=== PATIENT | female | born 1950 | race Caucasian/White ===

== ENCOUNTER 2023-11-05 14:19 | Observation (INO) ==
[2023-11-05 14:56] LABS: BILIRUBIN,URINE NEGATIVE (NEGATIVE); BLOOD/HEMOGLOBIN,URINE NEGATIVE (NEGATIVE); GLUCOSE, URINE NEGATIVE (NEGATIVE); KETONES,URINE NEGATIVE (NEGATIVE); LEUKOCYTE ESTERASE ,URINE NEGATIVE (NEGATIVE); NITRITES,URINE NEGATIVE (NEGATIVE); PROTEIN,URINE NEGATIVE (NEGATIVE); UROBILINOGEN,URINE NORMAL (NORMAL)
[2023-11-05 14:58] LABS: APPEARANCE,URINE CLEAR (CLEAR); COLOR,URINE STRAW (YELLOW)
--- NOTE | 2023-11-05 15:08 | DR.GENAD ---
HPI Time Seen Time Seen by Provider: 11/05/23 15:06 PCP Primary Care Physician: Dr. Tse Complaint/Symptoms Chief Complaint Doctors Comments: The patient was seen in primary care provider's office yesterday was found to have sinusitis type symptoms she was put on antibiotics and given sinus medication. She had labs drawn also there in the office and was found to have a sodium of 122 and her primary care provider called her and told her she needs to go to the emergency room for further evaluation. Chief Complaint:: Pt states that 10/28/23 she had one day of nausea with vomiting. That night she started having fever up to 100.6. The fever lasted through Wednesday and pt also had intermittent headache through Wednesday. Pt called PCP on Wednesday and was seen in the office yesterday and was treated for sinus infection. Pt also had labs drawn and got a call today that her sodium was 122. Self Treatment fo Chief Complaint: Pt was treated with Rocephin and Steroid shot at PCP office. Pt was prescribed Amoxicillin 500mg po bid x 7 days and dexamethason 2mg po daily. COVID-19 Coronavirus risk:travel/contact w/high risk person: No Has patient experienced Coronavirus symptoms: No Source History Provided: Patient Mode of Arrival Mode of Arrival: Ambulatory Timing Onset of Chief Complaint: 11/05/23 PMH PMH Past Medical History: Yes Past Medical History: Coronary Artery Disease, Dyslipidemia, Hypertension, Hypothyroidism and [place] Past Medical History Comment: Raynauds Past Surgical History: Yes Surgical History: Angioplasty/Stents and Tonsillectomy Past Surgical History Comment: tubal ligation, abdominal cysts removed Family History History of Family Medical Conditions: Yes Family Medical History: Cancer and Hypertension Family Medical History Comment: afib Social History Does patient currently use any type of tobacco product: No Have you used tobacco products in the last 12 months: No Type of Tobacco Use: None Does any household member use tobacco: No Alcohol Use: None Do you use any recreational Drugs:: No Lives With: Spouse Lives Where: Home Travel Risk Coronavirus risk:travel/contact w/high risk person: No Has patient experienced Coronavirus symptoms: No Infectious screening In the last 2 months have you had wt loss of >10#?: NO Have you had fever, night sweats or hemotysis?: No Have you traveled outside the country in the last 6 months?: No Isolation: Standard ROS Review of Systems Constitutional: Other (hyponatremia) Eyes: No Symptoms Reported ENTM: No Symptoms Reported Respiratoy: No Symptoms Reported Cardiovascular: No Symptoms Reported Gastrointestinal/Abdominal: No Symptoms Reported Genitourinary: No Symptoms Reported Neurological: No Symptoms Reported Musculoskeletal: No Symptoms Reported Integumentary: No Symptoms Reported Hematologic/Lymphatic: No Symptoms Reported Endocrine: No Symptoms Reported Psychiatric: No Symptoms Reported PE Vital Signs Vitals: Vital Signs Temperature 97.8 F Pulse Rate 76 Pulse Rate 74 Pulse Rate 77 Pulse Rate 78 Pulse Rate 79 Pulse Rate 85 Pulse Rate 112 Pulse Rate 97 Pulse Rate 77 Pulse Rate 79 Pulse Rate 79 Pulse Rate 79 Pulse Rate 80 Pulse Rate 81 Pulse Rate 80 Pulse Rate 79 Pulse Rate 75 Pulse Rate 67 Pulse Rate 69 Pulse Rate 69 Pulse Rate 76 Pulse Rate 74 Pulse Rate 72 Respiratory Rate 25 Respiratory Rate 29 Respiratory Rate 27 Respiratory Rate 26 Respiratory Rate 32 Respiratory Rate 31 Respiratory Rate 28 Respiratory Rate 16 Respiratory Rate 28 Respiratory Rate 28 Respiratory Rate 22 Respiratory Rate 21 Respiratory Rate 25 Respiratory Rate 20 Respiratory Rate 25 Respiratory Rate 27 Respiratory Rate 23 Respiratory Rate 25 Respiratory Rate 23 Respiratory Rate 28 Respiratory Rate 33 Respiratory Rate 29 Respiratory Rate 20 Blood Pressure 142/79 Blood Pressure 157/79 Blood Pressure 151/82 Blood Pressure 135/76 Blood Pressure 112/65 Blood Pressure 126/66 Blood Pressure 126/72 Blood Pressure 126/72 Blood Pressure 130/67 Blood Pressure 130/67 Blood Pressure 125/75 Blood Pressure 124/67 Blood Pressure 134/78 Blood Pressure 140/73 Blood Pressure 191/104 Blood Pressure 199/100 Blood Pressure 169/90 O2 Sat by Pulse Oximetry 100 O2 Sat by Pulse Oximetry 100 O2 Sat by Pulse Oximetry 99 General Limitations: No Limitations General Appearance: In Distress (mild distress) Head Head Exam: Normal Inspection and Atraumatic Eyes Eye exam: Normal Appearance, PERRL and EOMI ENT ENT Exam: Normal Exam, Normal Oropharynx and Normal External Ear Exam External Ear Exam: Normal External Inspection TM/Canal Exam: Bilateral: Normal Nose Exam: Normal Nose Exam Mouth Exam: Normal Inspection Throat Exam: Normal Inspection Neck Neck Exam: Normal Inspection and Full ROM Chest Chest Inspection: Normal Inspection and Symmetric Chest Wall Rise Respiratory Respiratory Exam: Normal Lung Sounds Bilat Respiratory Exam: Bilateral: Clear to Auscultation Cardiovascular Cardiovascular Exam: Regular Rate and Normal Rhythm Abdominal Exam Abdominal Exam: Normal Inspection, Normal Bowel Sounds and Soft Extremities Extremities Exam: Normal Inspection and Full ROM Back Back Exam: Normal Inspection and Full ROM Neurologic Neurological Exam: Alert, Oriented X3 and CN II-XII Intact Psychiatric Psychiatric Exam: Normal Affect and Normal Mood MDM Differential Diagnosis Differential Diagnosis: hyponatremia COURSE Treatment Treatment: Patient did have a repeat sodium done and was 123. Patient was given a 1 L bolus of normal saline. And was also given 40 mg of Lasix IV. Time was made with Dr. Chandler at 1805 with information about this patient and he excepted the patient observation for treatment of hyponegative treatment and we are going to give her Lasix 40 mg IV every 12 hours and we will going to water restrict to 1 L every 24 hours. This patient blood pressure was elevated during this ER evaluation and she required getting hydralazine 10 mg IV which brought her blood pressure down this patient was told of the intent to put her in for observation for treatment of high pole natremia and she was agreeable to the observation. ROR Labs Reviewed Laboratory Results Reviewed?: Yes 11/05/23 15:40 11/05/23 15:40 Laboratory: WBC 5.1 X10^3/uL (3.6-10.0) 11/05/23 15:40 RBC 4.24 X10^6/uL (3.5-5.4) 11/05/23 15:40 Hgb 14.7 g/dL (12.0-16.0) 11/05/23 15:40 Hct 41.7 % (36.0-47.0) 11/05/23 15:40 MCV 98.3 fL (80.0-100.0) 11/05/23 15:40 MCH 34.7 pg (27.0-34.0) H 11/05/23 15:40 MCHC 35.3 g/dL (33.0-35.0) H 11/05/23 15:40 RDW 13.5 % (11.6-16.5) 11/05/23 15:40 Plt Count 308 X10^3/uL (150.0-450.0) 11/05/23 15:40 MPV 7.6 fL (7.4-11.0) 11/05/23 15:40 Neut % (Auto) 84.3 % (42.0-75.0) H 11/05/23 15:40 Lymph % (Auto) 8.4 % (21.0-51.0) L 11/05/23 15:40 [place] % (Auto) 6.9 % (0.0-13.0) 11/05/23 15:40 Eos % (Auto) 0.2 % (0.9-2.9) L 11/05/23 15:40 Baso % (Auto) 0.2 % (0.2-1.0) 11/05/23 15:40 Neut # (Auto) 4.3 x10^3/uL (2.2-4.8) 11/05/23 15:40 Lymph # (Auto) 0.4 X10^3/uL (1.3-2.9) L 11/05/23 15:40 [place] # (Auto) 0.4 x10^3/uL (0.3-0.8) 11/05/23 15:40 Eos # (Auto) 0.0 x10^3/uL (0.0-0.2) 11/05/23 15:40 Baso # (Auto) 0.0 X10^3/uL (0.0-0.1) 11/05/23 15:40 Absolute Nucleated RBC 0.0 /100WBC 11/05/23 15:40 Sodium 123 mmol/L (136-145) L* 11/05/23 15:40 Corrected Sodium TNP 11/05/23 15:40 Potassium 4.9 mmol/L (3.5-5.1) 11/05/23 15:40 Chloride 87 mmol/L (98-107) L 11/05/23 15:40 Carbon Dioxide 27.5 mmol/L (21-32) 11/05/23 15:40 BUN 6 mg/dL (7-18) L 11/05/23 15:40 Creatinine 0.54 mg/dL (0.55-1.02) L 11/05/23 15:40 Est GFR (MDRD) Af Amer > 60 (>60) 11/05/23 15:40 Est GFR (MDRD) Non-Af > 60 (>60) 11/05/23 15:40 Glucose 94 mg/dL (65-99) 11/05/23 15:40 Calcium 9.0 mg/dL (8.5-10.1) 11/05/23 15:40 Corrected Calcium TNP 11/05/23 15:40 Total Bilirubin 0.60 mg/dL (0.2-1.0) 11/05/23 15:40 AST 35 Units/L (15-37) 11/05/23 15:40 ALT 34 Units/L (12-78) 11/05/23 15:40 Alkaline Phosphatase 83 Units/L (46-116) 11/05/23 15:40 Total Protein 7.9 g/dL (6.4-8.2) 11/05/23 15:40 Albumin 4.3 g/dL (3.4-5.0) 11/05/23 15:40 Globulin 3.6 g/dL (2.5-4.5) 11/05/23 15:40 Albumin/Globulin Ratio 1.2 Ratio (1.1-2.1) 11/05/23 15:40 Specimen Type Clean catch urine 11/05/23 14:42 Urine Color Straw (YELLOW) 11/05/23 14:42 Urine Appearance Clear (CLEAR) 11/05/23 14:42 Urine pH 8.0 (5.0 - 8.0) 11/05/23 14:42 Ur Specific [place] 1.015 (1.000-1.030) 11/05/23 14:42 Urine Protein Negative (NEGATIVE) 11/05/23 14:42 Urine Glucose (UA) Negative (NEGATIVE) 11/05/23 14:42 Urine Ketones Negative (NEGATIVE) 11/05/23 14:42 Urine Blood Negative (NEGATIVE) 11/05/23 14:42 Urine Nitrite Negative (NEGATIVE) 11/05/23 14:42 Urine Bilirubin Negative (NEGATIVE) 11/05/23 14:42 Urine Urobilinogen Normal (NORMAL) 11/05/23 14:42 Ur Leukocyte Esterase Negative (NEGATIVE) 11/05/23 14:42 SARS-CoV-2 (PCR) Negative (NEGATIVE) 11/05/23 15:38 Influenza Type A (PCR) Negative (NEGATIVE) 11/05/23 15:38 Influenza Type B (PCR) Negative (NEGATIVE) 11/05/23 15:38 RSV (PCR) Negative (NEGATIVE) 11/05/23 15:38 Opioid Opioid Risk Tool Age (Margarito box if 16-45): No History of Preadolescent Sexual Abuse: No Total: 0 Total Score Risk Category: Low Risk Copyright: Pablo LR predicting aberrant behaviors Discharge Plan Diagnosis Discharge Problem: Acute hyponatremia Discharge Plan Patient Disposition: 09 ADMITTED INPATIENT Condition: Stable Orders to Discharge Patient Discharge Orders: Transfer (Routine); Ordered 11/05/23 Ordered By: Christopher Carrillo
[2023-11-05 15:15] VITALS: O2SAT 100
[2023-11-05] MEDS ORDERED: APRESOLINE INJ 20 MG VIAL ONE (15:46)
[2023-11-05 15:50] LABS: BASOPHILS % (AUTO) 0.2 % (0.2-1.0); EOSINOPHILS % (AUTO) 0.2 % (0.9-2.9); HEMATOCRIT 41.7 % (36.0-47.0); HEMOGLOBIN 14.7 g/dL (12.0-16.0); LYMPHOCYTES # (AUTO) 0.4 X10^3/uL (1.3-2.9); LYMPHOCYTES % (AUTO) 8.4 % (21.0-51.0); MEAN CORPUSCULAR HEMOGLOBIN 34.7 pg (27.0-34.0); MEAN CORPUSCULAR HGB CONC 35.3 g/dL (33.0-35.0); MEAN CORPUSCULAR VOLUME 98.3 fL (80.0-100.0); MEAN PLATELET VOLUME 7.6 fL (7.4-11.0); MONOCYTES # (AUTO) 0.4 x10^3/uL (0.3-0.8); MONOCYTES % (AUTO) 6.9 % (0.0-13.0); NEUTROPHILS # (AUTO) 4.3 x10^3/uL (2.2-4.8); NEUTROPHILS % (AUTO) 84.3 % (42.0-75.0); PLATELET COUNT 308 X10^3/uL (150.0-450.0); RED BLOOD COUNT 4.24 X10^6/uL (3.5-5.4); RED CELL DISTRIBUTION WIDTH 13.5 % (11.6-16.5); WHITE BLOOD COUNT 5.1 X10^3/uL (3.6-10.0)
[2023-11-05] MEDS: APRESOLINE INJ 20 MG VIAL IVP ONE (15:50)
[2023-11-05 16:54] LABS: ALANINE AMINOTRANSFERASE 34 Units/L (12-78); ALBUMIN 4.3 g/dL (3.4-5.0); ALKALINE PHOSPHATASE 83 Units/L (46-116); ASPARTATE AMINO TRANSFERASE 35 Units/L (15-37); BLOOD UREA NITROGEN 6 mg/dL (7-18); CARBON DIOXIDE 27.5 mmol/L (21-32); CHLORIDE 87 mmol/L (98-107); CREATININE 0.54 mg/dL (0.55-1.02); GLUCOSE 94 mg/dL (65-99); POTASSIUM 4.9 mmol/L (3.5-5.1); TOTAL PROTEIN 7.9 g/dL (6.4-8.2); eGFR NON BLACK RACES > 60 (>60)
[2023-11-05 16:56] LABS: SODIUM 123 mmol/L (136-145)
[2023-11-05] MEDS ORDERED: NS 1,000 ML IV 1,000 ML ONE (17:01)
[2023-11-05] MEDS: NS 1,000 ML IV 1,000 ML IV ONE (17:16)
[2023-11-05] MEDS: LASIX IVP ONE (18:14)
[2023-11-05 19:10] VITALS: RESP 20
[2023-11-05 22:26] VITALS: BMI 16.5
[2023-11-05] MEDS: LIPITOR TAB 20 MG PO SCH (22:36)
[2023-11-05] MEDS: RESTORIL CAP 15 MG PO PRN (22:42)
[2023-11-06 06:18] LABS: BASOPHILS % (AUTO) 0.8 % (0.2-1.0); EOSINOPHILS # (AUTO) 0.1 x10^3/uL (0.0-0.2); EOSINOPHILS % (AUTO) 2.2 % (0.9-2.9); HEMATOCRIT 35.5 % (36.0-47.0); HEMOGLOBIN 12.9 g/dL (12.0-16.0); LYMPHOCYTES # (AUTO) 0.8 X10^3/uL (1.3-2.9); LYMPHOCYTES % (AUTO) 28.3 % (21.0-51.0); MEAN CORPUSCULAR HEMOGLOBIN 35.4 pg (27.0-34.0); MEAN CORPUSCULAR HGB CONC 36.3 g/dL (33.0-35.0); MEAN CORPUSCULAR VOLUME 97.7 fL (80.0-100.0); MEAN PLATELET VOLUME 8.2 fL (7.4-11.0); MONOCYTES # (AUTO) 0.4 x10^3/uL (0.3-0.8); MONOCYTES % (AUTO) 14.4 % (0.0-13.0); NEUTROPHILS # (AUTO) 1.5 x10^3/uL (2.2-4.8); NEUTROPHILS % (AUTO) 54.3 % (42.0-75.0); PLATELET COUNT 264 X10^3/uL (150.0-450.0); RED BLOOD COUNT 3.64 X10^6/uL (3.5-5.4); RED CELL DISTRIBUTION WIDTH 13.9 % (11.6-16.5); WHITE BLOOD COUNT 2.7 X10^3/uL (3.6-10.0)
[2023-11-06 06:33] LABS: ALANINE AMINOTRANSFERASE 25 Units/L (12-78); ALBUMIN 3.1 g/dL (3.4-5.0); ALKALINE PHOSPHATASE 57 Units/L (46-116); ASPARTATE AMINO TRANSFERASE 26 Units/L (15-37); BLOOD UREA NITROGEN 4 mg/dL (7-18); CALCIUM 8.1 mg/dL (8.5-10.1); CARBON DIOXIDE 26.3 mmol/L (21-32); CHLORIDE 97 mmol/L (98-107); COR CA(FOR HYPOALB) 8.8 mg/dL (8.5-10.1); CREATININE 0.47 mg/dL (0.55-1.02); GLUCOSE 86 mg/dL (65-99); POTASSIUM 3.4 mmol/L (3.5-5.1); SODIUM 130 mmol/L (136-145); eGFR NON BLACK RACES > 60 (>60)
[2023-11-06] MEDS ORDERED: CONSULT PHARMACY - POTASSIUM & MAGNESIUM XX SCH ×2 (07:00→09:00)
[2023-11-06 08:19] VITALS: BP 138/74; PULSE 66; TEMP 97.7
[2023-11-06] MEDS: APRESOLINE TAB 10 MG PO SCH (08:37)
[2023-11-06] MEDS: K-DUR TAB 20 MEQ PO SCH (08:37)
[2023-11-06] MEDS: ASPIRIN EC 81 MG PO SCH (08:37)
[2023-11-06] MEDS: LOPRESSOR TAB 50 MG PO SCH (08:38)
[2023-11-06] MEDS: LASIX IVP SCH (09:27)
[2023-11-06] MEDS: THYROID 60 MG PO SCH (09:28)
--- NOTE | 2023-11-06 13:58 | DR.SSS ---
SHORT STAY SUMMARY Admission Date Date of Admission: 11/05/23 Discharge Date Discharge Date: 11/06/23 Admission Diagnoses Admission Diagnoses: 1. Acute hyponatremia Discharge Diagnoses Discharge Diagnoses: 1. Hyponatremia Chief Complaint Chief Complaint: Weakness History of Present Illness History of Present Illness: This is a pleasant 73-year-old white female who presented to [facility] emergency department after receiving a call from her primary care physician stating that she needed to get her low potassium checked out. She had seen him earlier in the week and was treated for a sinus infection with amoxicillin 500 mg twice daily. He did some labs on her and found out that she had a sodium level of 122 earlier in the week. He called her and wanted to go to the local hospital to have some more workup done being we are headed into the weekend. She had repeat labs done and it showed that her sodium was still low at 123. Overall, she is stable but given that her sodium is so low we elected to put her in and give her normal saline overnight and some IV Lasix to try and get her sodium level but towards normal as quick as possible. This morning her sodium is improved at 130 and she is feeling fine. She has complaints and is feeling back to normal today. Since she is stable we will go ahead and discharge her home today and have her follow-up with her primary care physician in [place], [place] within a week. Past Medical History Past Medical History: Coronary Artery Disease, Dyslipidemia, Hypertension, Hypothyroidism and [place] Past Surgical History Surgical History: Angioplasty/Stents and Tonsillectomy Allergies Allergies Allergy/AdvReac Type Severity Reaction Status Date / Time cortisone AdvReac Verified 11/05/23 14:45 Medications Home Medications: cortisone Adverse Reaction (Verified 11/05/23 14:45) CONTINUE taking the following medications amoxicillin 500 mg capsule 500 mg PO BID 11/05/23 [History] aspirin 81 mg capsule,delayed release 81 mg PO DAILY 11/05/23 [History] atorvastatin 20 mg tablet 20 mg PO HS 11/05/23 [History] dexamethasone 2 mg tablet 2 mg PO QDAY 11/05/23 [History] hydralazine 10 mg tablet 10 mg PO DAILY 11/05/23 [History] hydrochlorothiazide 12.5 mg tablet 12.5 mg PO QDAY 11/05/23 [History] metoprolol tartrate 50 mg tablet 50 mg PO QDAY 11/05/23 [History] ondansetron HCl 4 mg tablet 8 mg PO BID PRN 11/05/23 [History] risedronate 150 mg tablet 150 mg PO QMONTH 11/05/23 [History] thyroid (pork) 60 mg tablet (PROTOTYPE ENGINEER Thyroid) 60 mg PO QDAY 11/05/23 [History] Family History Family Medical History: Cancer Social History Does patient currently use any type of tobacco product: No Have you used tobacco products in the last 12 months: No Type of Tobacco Use: None Does any household member use tobacco: No Alcohol Use: Occasionally Drug Use: None Review of Systems Constitutional: No Symptoms Reported Eyes: No Symptoms Reported ENT: No Symptoms Reported Respiratory: No Symptoms Reported Cardiovascular: No Symptoms Reported Gastrointestinal: No Symptoms Reported Genitourinary: No Symptoms Reported Musculoskeletal: No Symptoms Reported Skin: No Symptoms Reported Neurological: Weakness Physical Exam Vital Signs: Last Vital Signs Temp 97.7 F 11/06/23 08:00 Pulse 66 11/06/23 08:00 Resp 20 11/06/23 08:00 BP 138/74 11/06/23 08:00 Pulse Ox 100 11/06/23 08:00 O2 Del Method Room Air 11/06/23 08:00 Oriented: Normal, Time, Person and Place Eyes: Normal Ear: Normal Nose: Normal Throat: Normal Respiratory: Clear Throughout Cardiovascular: Normal : Normal Auscultation: Bowel Sounds: Normal Palpation: Normal Tenderness: Normal Skin: Normal Musculoskeletal: Normal Psychiatric: Normal Mood Description: Calm Affect: Normal Speech Pattern: Clear and Appropriate Labs Labs: Laboratory Last Values WBC 2.7 X10^3/uL (3.6-10.0) L 11/06/23 05:15 RBC 3.64 X10^6/uL (3.5-5.4) 11/06/23 05:15 Hgb 12.9 g/dL (12.0-16.0) 11/06/23 05:15 Hct 35.5 % (36.0-47.0) L 11/06/23 05:15 MCV 97.7 fL (80.0-100.0) 11/06/23 05:15 MCH 35.4 pg (27.0-34.0) H 11/06/23 05:15 MCHC 36.3 g/dL (33.0-35.0) H 11/06/23 05:15 RDW 13.9 % (11.6-16.5) 11/06/23 05:15 Plt Count 264 X10^3/uL (150.0-450.0) 11/06/23 05:15 MPV 8.2 fL (7.4-11.0) 11/06/23 05:15 Neut % (Auto) 54.3 % (42.0-75.0) 11/06/23 05:15 Lymph % (Auto) 28.3 % (21.0-51.0) 11/06/23 05:15 [place] % (Auto) 14.4 % (0.0-13.0) H 11/06/23 05:15 Eos % (Auto) 2.2 % (0.9-2.9) 11/06/23 05:15 Baso % (Auto) 0.8 % (0.2-1.0) 11/06/23 05:15 Neut # (Auto) 1.5 x10^3/uL (2.2-4.8) L 11/06/23 05:15 Lymph # (Auto) 0.8 X10^3/uL (1.3-2.9) L 11/06/23 05:15 [place] # (Auto) 0.4 x10^3/uL (0.3-0.8) 11/06/23 05:15 Eos # (Auto) 0.1 x10^3/uL (0.0-0.2) 11/06/23 05:15 Baso # (Auto) 0.0 X10^3/uL (0.0-0.1) 11/06/23 05:15 Absolute Nucleated RBC 0.3 /100WBC 11/06/23 05:15 Sodium 130 mmol/L (136-145) L 11/06/23 05:15 Corrected Sodium TNP 11/06/23 05:15 Potassium 3.4 mmol/L (3.5-5.1) L 11/06/23 05:15 Chloride 97 mmol/L (98-107) L 11/06/23 05:15 Carbon Dioxide 26.3 mmol/L (21-32) 11/06/23 05:15 BUN 4 mg/dL (7-18) L 11/06/23 05:15 Creatinine 0.47 mg/dL (0.55-1.02) L 11/06/23 05:15 Est GFR (MDRD) Af Amer > 60 (>60) 11/06/23 05:15 Est GFR (MDRD) Non-Af > 60 (>60) 11/06/23 05:15 Glucose 86 mg/dL (65-99) 11/06/23 05:15 Calcium 8.1 mg/dL (8.5-10.1) L 11/06/23 05:15 Corrected Calcium 8.8 mg/dL (8.5-10.1) 11/06/23 05:15 Magnesium 2.2 mg/dL (2.0-2.9) 11/06/23 05:15 Total Bilirubin 0.40 mg/dL (0.2-1.0) 11/06/23 05:15 AST 26 Units/L (15-37) 11/06/23 05:15 ALT 25 Units/L (12-78) 11/06/23 05:15 Alkaline Phosphatase 57 Units/L (46-116) 11/06/23 05:15 Total Protein 6.0 g/dL (6.4-8.2) L 11/06/23 05:15 Albumin 3.1 g/dL (3.4-5.0) L 11/06/23 05:15 Globulin 2.9 g/dL (2.5-4.5) 11/06/23 05:15 Albumin/Globulin Ratio 1.1 Ratio (1.1-2.1) 11/06/23 05:15 Specimen Type Clean catch urine 11/05/23 14:42 Urine Color Straw (YELLOW) 11/05/23 14:42 Urine Appearance Clear (CLEAR) 11/05/23 14:42 Urine pH 8.0 (5.0 - 8.0) 11/05/23 14:42 Ur Specific [place] 1.015 (1.000-1.030) 11/05/23 14:42 Urine Protein Negative (NEGATIVE) 11/05/23 14:42 Urine Glucose (UA) Negative (NEGATIVE) 11/05/23 14:42 Urine Ketones Negative (NEGATIVE) 11/05/23 14:42 Urine Blood Negative (NEGATIVE) 11/05/23 14:42 Urine Nitrite Negative (NEGATIVE) 11/05/23 14:42 Urine Bilirubin Negative (NEGATIVE) 11/05/23 14:42 Urine Urobilinogen Normal (NORMAL) 11/05/23 14:42 Ur Leukocyte Esterase Negative (NEGATIVE) 11/05/23 14:42 SARS-CoV-2 (PCR) Negative (NEGATIVE) 11/05/23 15:38 Influenza Type A (PCR) Negative (NEGATIVE) 11/05/23 15:38 Influenza Type B (PCR) Negative (NEGATIVE) 11/05/23 15:38 RSV (PCR) Negative (NEGATIVE) 11/05/23 15:38 Assessment/Plan (1) Acute hyponatremia: 1: I suspect the patient's hyponatremia is likely secondary to her HCTZ that she takes for hypertension. I will let her discuss possibly changing her blood pressure medication when she follows up with him later in the week. Hospital Course Hospital Course: Following admission the patient had no further problems. We gave her IV Lasix and normal saline IV fluid overnight and her sodium had improved to 130 this morning. Her potassium was a little bit low at 3.4 and we will correct that with potassium replacement protocol. Her magnesium was checked and was normal at 2.2. Her vital signs are stable and blood pressure normal at 138/74 this morning. Since she is doing better we will go ahead and discharge her home this morning. Discharge medications patient may resume her regular home medicines as before. Discharge disposition patient will be discharged home in stable condition and she will be seeing her primary care provider later in the week for hospital follow-up. Discharge Medications Discharge Medications: Home Medication List amoxicillin 500 mg capsule 500 mg PO BID 11/05/23 [History] aspirin 81 mg capsule,delayed release 81 mg PO DAILY 11/05/23 [History] atorvastatin 20 mg tablet 20 mg PO HS 11/05/23 [History] dexamethasone 2 mg tablet 2 mg PO QDAY 11/05/23 [History] hydralazine 10 mg tablet 10 mg PO DAILY 11/05/23 [History] hydrochlorothiazide 12.5 mg tablet 12.5 mg PO QDAY 11/05/23 [History] metoprolol tartrate 50 mg tablet 50 mg PO QDAY 11/05/23 [History] ondansetron HCl 4 mg tablet 8 mg PO BID PRN 11/05/23 [History] risedronate 150 mg tablet 150 mg PO QMONTH 11/05/23 [History] thyroid (pork) 60 mg tablet (PROTOTYPE ENGINEER Thyroid) 60 mg PO QDAY 11/05/23 [History] Prescriptions: Discharge Disposition Discharge Disposition: Patient discharged home in stable condition Discharge Plan Discharge Plan Patient Disposition: 01 HOME, SELF-CARE Condition: Stable Health Concerns: Post Hospitalization: new medications and changes needed to prevent readmission or further decline. Pt educated and given instructions on all concerns. Plan of Treatment: Continue with present treatment and follow up plan. Pt is to keep follow up appointment as instructed and take medications as ordered. Prescriptions: No Action amoxicillin 500 mg capsule 500 mg PO BID Rx Instructions: x 7 days - started 11/04/23 hydralazine 10 mg Tablet 10 mg PO DAILY atorvastatin 20 mg tablet 20 mg PO HS ondansetron HCl 4 mg tablet 8 mg PO BID PRN aspirin 81 mg Capsule,Delayed Release(Dr/Ec) 81 mg PO DAILY dexamethasone 2 mg tablet 2 mg PO QDAY Rx Instructions: x 5 days - started on 11/04/23 metoprolol tartrate 50 mg tablet 50 mg PO QDAY hydrochlorothiazide 12.5 mg tablet 12.5 mg PO QDAY risedronate 150 mg tablet 150 mg PO QMONTH thyroid (pork) [PROTOTYPE ENGINEER Thyroid] 60 mg tablet 60 mg PO QDAY Orders to Discharge Patient Discharge Orders: Discharge (Routine); Ordered 11/06/23 Ordered By: Himanshu Mar Follow ups/Referrals Follow ups/Referrals: Faisal Tse [Primary Care Provider] - 3 days Instructions Instructions: Hyponatremia, [place] Stand Alone Forms: Excuse From Work or School, Post Hospital Follow Up Care
== END 2023-11-06 10:20 | disposition home or self-care (01) ==
LOC: ER 14:19 → MED/SURG 14:19
PROVIDERS: ADMIT Family Medicine; ATTEND Family Medicine
DX: I25.10 Atherosclerotic heart disease of native coronary artery without angina pectoris; Z20.822 Contact with and (suspected) exposure to COVID-19; E03.8 Other specified hypothyroidism; Z86.73 Personal history of transient ischemic attack (TIA), and cerebral infarction without residual deficits; R51.9 Headache, unspecified; R53.1 Weakness; I10 Essential (primary) hypertension; E87.1 Hypo-osmolality and hyponatremia; E78.5 Hyperlipidemia, unspecified